=== PATIENT | female | born 1940 | race American Indian/Alaskan Native ===

== ENCOUNTER 2018-11-15 09:35 | Inpatient (IN) | payer OTHER ==
[~2018-11-15] VITALS: Ht 165.1 cm; Wt 56.7 kg
[~2018-11-15 09:35] MED LIST: CEFADROXIL500 MG PO; LANTUS100 U/ML SQ
[2018-11-15] MEDS ORDERED: SYNTHROID125 MCG (09:51)
[2018-11-15] MEDS ORDERED: GABAPENTIN100 MG (09:52)
[2018-11-15] MEDS ORDERED: MEMANTINE HCL10 MG (09:52)
[2018-11-15] MEDS ORDERED: PROTONIX40 MG (09:53)
[2018-11-15] MEDS ORDERED: PROPRANOLOL HCL40 MG (09:54)
[2018-11-15] MEDS ORDERED: SERTRALINE HCL25 MG (09:55)
== END 2018-11-22 15:59 | disposition home or self-care (01) | DRG 690 ==
LOC: ER 09:35 → SEC-K 22:01 → MEDJ 22:01
PROVIDERS: ADMIT Internal Medicine
PROC: 4A033R1 Measurement of Arterial Saturation, Peripheral, Percutaneous Approach (ICD-10-PCS; principal; 2018-11-15)
PROC: B246ZZZ Ultrasonography of Right and Left Heart (ICD-10-PCS; 2018-11-16)
DX: N39.0 Urinary tract infection, site not specified (principal); E87.0 Hyperosmolality and hypernatremia; I50.30 Unspecified diastolic (congestive) heart failure; G12.21 Amyotrophic lateral sclerosis; E86.0 Dehydration; E11.65 Type 2 diabetes mellitus with hyperglycemia; Z74.01 Bed confinement status; Z93.1 Gastrostomy status; I11.0 Hypertensive heart disease with heart failure; E03.8 Other specified hypothyroidism

== ENCOUNTER 2018-12-17 05:41 | Emergency (ER) | payer OTHER ==
[~2018-12-17] VITALS: Ht 152.4 cm; Wt 49.9 kg
[~2018-12-17 05:41] MED LIST changes: +GABAPENTIN100 MG; +MEMANTINE HCL10 MG; +PROPRANOLOL HCL40 MG; +PROTONIX40 MG; +SERTRALINE HCL25 MG; +SYNTHROID125 MCG
== END 2018-12-17 08:47 | disposition home or self-care (01) ==
LOC: ER 05:41
DX: R06.02 Shortness of breath (principal); R05 Cough